=== PATIENT | female | born 1985 | race Caucasian/White ===

== ENCOUNTER 2018-01-30 06:32 | Day surgery (SDC) | payer OTHER ==
[2018-01-29 10:23] VITALS: BP 118/83
[2018-01-29 10:47] LABS: BASOPHILS # (AUTO) 0.06 x10^3/uL (0-0.1); BASOPHILS % (AUTO) 1 % (0-1); EOSINOPHILS # (AUTO) 0.08 x10^3/uL (0-0.4); EOSINOPHILS % (AUTO) 1 % (1-7); LYMPHOCYTES # (AUTO) 2.14 x10^3/uL (1-3.4); LYMPHOCYTES % (AUTO) 33 % (22-44); MD NO; MEAN CORPUSCULAR HEMOGLOBIN 32.2 pg (27.0-34.8); MEAN CORPUSCULAR HGB CONC 34.3 g/dL (32.4-35.8); MEAN CORPUSCULAR VOLUME 93.9 fL (80-100); MEAN PLATELET VOLUME 9.2 fL (7.4-10.4); MONOCYTES # (AUTO) 0.36 x10^3/uL (0.2-0.8); MONOCYTES % (AUTO) 5 % (2-9); NEUTROPHILS % (AUTO) 60 % (42-75); PLATELET COUNT 266 x10^3/uL (130-400); RED BLOOD COUNT 4.61 x10^6/uL (3.82-5.3); RED CELL DISTRIBUTION WIDTH 12.8 % (9.6-15.2)
[2018-01-29 10:59] LABS: ALANINE AMINOTRANSFERASE 18 U/L (12-78); ANION GAP 8 mmol/L (5-15); CHLORIDE 108 mmol/L (98-107); CREATININE 1.08 mg/dL (0.55-1.02)
[2018-01-29 11:04] LABS: ALKALINE PHOSPHATASE 52 U/L (45-117); BILIRUBIN,TOTAL 0.5 mg/dL (0.2-1.0); TOTAL PROTEIN 7.4 g/dL (6.4-8.2)
[~2018-01-30] VITALS: Ht 157.5 cm; Wt 69.0 kg
[~2018-01-30 06:32] MED LIST: BUPR-86 PO; CETI10CA PO; TOPI50TA35 PO
[2018-01-30] MEDS ORDERED: SODIUM CHLORIDE 0.9% 1,000 ML IV SCH (06:39)
[2018-01-30] MEDS ORDERED: METO25TA91 PO (06:49)
[2018-01-30] MEDS ORDERED: LIDOCAINE/PF 1%, 30ML ONE (08:10)
[2018-01-30] MEDS ORDERED: FENTANYL PF 100 MCG/2ML ONE (08:10)
[2018-01-30] MEDS ORDERED: ADENOSINE 6 MG/2 ML ONE (08:10)
[2018-01-30] MEDS ORDERED: MIDAZOLAM 1 MG/ML, 5ML ONE (08:10)
[2018-01-30] MEDS ORDERED: ISOPROTERENOL 0.2MG/ML, 5ML ONE (08:10)
[2018-01-30] MEDS ORDERED: ACETAMINOPHEN 325 MG TABLET PO PRN (10:00)
== END 2018-01-30 14:18 | disposition home or self-care (01) ==
LOC: CACL 06:32
PROVIDERS: ATTEND Internal Medicine Cardiovascular Disease
DX: I47.1 Supraventricular tachycardia (principal); G43.909 Migraine, unspecified, not intractable, without status migrainosus; Z98.890 Other specified postprocedural states; Z72.89 Other problems related to lifestyle
CPT/HCPCS: 36415; 71046; 80053; 84703; 85025; 93613; 93620; 93623; 99156; 99157; C1730; C1894; C2630; J2250; J3010; J3490; J0153